=== PATIENT | female | born 2000 | race Caucasian/White ===

== ENCOUNTER 2022-11-12 23:24 | Emergency (ER) | payer MEDICAID ==
[2022-11-13 00:05] VITALS: BP 131/86; PULSE 78
[2022-11-13] MEDS ORDERED: Cyclobenzaprine 10 MG Tab PO ONE (00:34)
[2022-11-13] MEDS ORDERED: Ketorolac 30 MG/ML SDV IM ONE (00:34)
== END 2022-11-13 01:45 | disposition home or self-care (01) ==
LOC: JP.ED 23:24
DX: M25.511 Pain in right shoulder (principal)
CPT/HCPCS: 96372; 99283; A9270; J1885